=== PATIENT | male | born 1970 | race Caucasian/White ===

== ENCOUNTER 2023-08-18 09:32 | Emergency (ER) | payer OTHER, SELFPAY ==
[2023-08-18] VITALS (23 sets, daily range): BP systolic 150–237; BP diastolic 75–107; PULSE 52–63; RESP 14; TEMP 37.2; O2SAT 96–100; BMI 30.4
[2023-08-18] MEDS: ONDANSETRON 4 MG ODT SL (09:47)
--- NOTE | 2023-08-18 11:55 | ED_ITS ---
HPI - Nausea/Vomiting/Diarrhea General Chief complaint: Nausea/Vomiting/Diarrhea Stated complaint: Stomach Flu Time Seen by Provider: 08/18/23 11:54 Source: patient Mode of arrival: Ambulatory History of Present Illness HPI Narrative: 53-year-old male has had multiple episodes of nausea with nonbloody emesis last couple of days, also loose stools, last episode of nausea vomiting this morning, last loose stool just before triage. No fevers or chills. Had initial abdominal cramping that seems better now. He has not taken any medications on his own for these symptoms. Given oral Zofran at triage for control of nausea. Related Data Home Medications Medication Instructions Recorded Confirmed aspirin 81 mg tablet,delayed 81 mg PO QDAY ##0 01/11/16 release atorvastatin 20 mg tablet (Lipitor) 20 mg PO QDAY ##0 01/11/16 esomeprazole magnesium 20 mg 20 mg PO QDAY #0 caps 01/11/16 capsule,delayed release loratadine 10 mg tablet 10 mg PO QDAY #0 tabs 01/11/16 metoprolol tartrate 50 mg tablet 50 mg PO QDAY ##0 01/11/16 telmisartan 80 mg tablet 80 mg PO QDAY #0 tabs 01/11/16 Allergies Allergy/AdvReac Type Severity Reaction Status Date / Time No Known Drug Allergies Allergy Verified 08/18/23 09:41 Review of Systems Review of Systems Narrative: as per HPI Patient History Social History Smoking Status: Current every day smoker Smoking Status: Current every day smoker alcohol intake frequency: holidays/special occasions only Substance Use Type: marijuana Exam Narrative Exam Narrative: GENERAL: Well-developed patient, in mild distress. HEAD: Atraumatic. Normocephalic. EYES: Pupils equal round and reactive. Extraocular motions intact. No scleral icterus. No injection or drainage. ENT: Nose without bleeding, purulent drainage. Throat without erythema, tonsillar hypertrophy or exudate. Airway patent. NECK: Trachea midline. Non tender CARDIOVASCULAR: Regular rate and rhythm without murmurs, gallops, or rubs. RESPIRATORY: Clear to auscultation. Breath sounds equal bilaterally. No wheezes, rales, or rhonchi. GASTROINTESTINAL: Abdomen soft, non-tender, nondistended. EXTREMITIES: No edema or joint tenderness. BACK: Nontender without deformity or crepitance. No flank tenderness. NEURO: AOx3. SKIN: No rash or erythema of visible areas Initial Vital Signs Initial Vital Signs: Vital Signs Temperature 98.9 F 08/18/23 09:41 Pulse Rate 63 08/18/23 09:41 Respiratory Rate 14 08/18/23 09:41 Blood Pressure 199/88 H 08/18/23 09:41 Pulse Oximetry 98 08/18/23 09:41 Oxygen Delivery Method Room Air 08/18/23 09:41 Course Orders Ordered: Discontinued Medications Hydralazine HCl (Hydralazine 20 Mg/Ml Vial) 10 mg IV NOW ONE Stop: 08/18/23 15:56 Last Admin: 08/18/23 16:09 Dose: 10 mg Documented By: ANNELISE Ondansetron HCl (Ondansetron 4 Mg Odt) 4 mg SL NOW PRN PRN Reason: Nausea And Vomiting Last Admin: 08/18/23 09:47 Dose: 4 mg Documented By: ALEA Ondansetron HCl (Ondansetron 4 Mg/2 Ml Inj) 4 mg IV NOW PRN PRN Reason: Nausea And Vomiting Vital Signs Vital signs: Vital Signs - 8 hr 08/18/23 09:41 08/18/23 10:06 08/18/23 10:07 Temperature 98.9 F Pulse Rate 63 62 63 Respiratory Rate 14 Blood Pressure 199/88 H Pulse Oximetry 98 98 97 Oxygen Delivery Method Room Air 08/18/23 10:07 08/18/23 10:30 08/18/23 10:30 Temperature Pulse Rate 56 L Respiratory Rate Blood Pressure 181/82 H 160/80 H Pulse Oximetry 97 Oxygen Delivery Method 08/18/23 10:45 08/18/23 10:45 08/18/23 11:00 Temperature Pulse Rate 56 L 53 L Respiratory Rate Blood Pressure 167/75 H Pulse Oximetry 98 96 Oxygen Delivery Method 08/18/23 11:00 08/18/23 11:30 08/18/23 11:30 Temperature Pulse Rate 53 L Respiratory Rate Blood Pressure 161/82 H 182/86 H Pulse Oximetry 97 Oxygen Delivery Method 08/18/23 12:00 08/18/23 12:01 08/18/23 12:01 Temperature Pulse Rate 52 L 52 L Respiratory Rate Blood Pressure 169/77 H Pulse Oximetry 98 98 Oxygen Delivery Method 08/18/23 12:32 08/18/23 13:00 08/18/23 15:11 Temperature Pulse Rate 56 L 53 L Respiratory Rate Blood Pressure Pulse Oximetry 100 99 97 Oxygen Delivery Method 08/18/23 15:12 08/18/23 15:12 08/18/23 15:15 Temperature Pulse Rate 52 L Respiratory Rate Blood Pressure 203/84 H 203/84 H Pulse Oximetry 98 Oxygen Delivery Method 08/18/23 15:15 08/18/23 15:30 08/18/23 15:30 Temperature Pulse Rate 54 L 57 L Respiratory Rate Blood Pressure 223/97 H Pulse Oximetry 97 98 Oxygen Delivery Method 08/18/23 16:00 08/18/23 16:06 08/18/23 16:06 Temperature Pulse Rate 58 L 57 L Respiratory Rate Blood Pressure 237/107 H Pulse Oximetry 100 98 Oxygen Delivery Method 08/18/23 16:09 08/18/23 16:30 08/18/23 16:31 Temperature Pulse Rate 56 L 56 L Respiratory Rate Blood Pressure 237/107 H 204/90 H Pulse Oximetry 99 Oxygen Delivery Method 08/18/23 16:31 Temperature Pulse Rate 56 L Respiratory Rate Blood Pressure Pulse Oximetry 98 Oxygen Delivery Method MDM - Nausea/Vomiting/Diarrhea Lab Data Attestation: I reviewed the patient's lab results. 08/18/23 16:45 08/18/23 16:45 Labs: Lab Results 08/18/23 Range/Units 16:45 WBC 8.4 (4.5-11.0) X10^3/uL RBC 5.00 (4.5-5.9) X10^6/uL Hgb 15.5 (13.5-17.5) g/dL Hct 44.5 (41-53) % MCV 88.9 (80-100) fL MCH 31.1 (26-34) PG MCHC 35.0 (30-36) % RDW 13.1 (11.6-14.8) % Plt Count 192 (150-400) X10^3/uL Neut % (Auto) 67.4 (50-75) % Lymph % (Auto) 23.5 L (25-40) % [place] % (Auto) 8.1 (3-14) % Eos % (Auto) 0.4 L (2-4) % Baso % (Auto) 0.6 (0-2) % Neut # (Auto) 5700 (3566-2343) /uL Lymph # (Auto) 2000 (0795-1262) /uL [place] # (Auto) 700 (0-900) /uL Eos # (Auto) 0 (0-450) /uL Baso # (Auto) 100 (0-100) /uL Sodium 140 (137-145) mmol/L Potassium 3.8 (3.4-5.1) mmol/L Chloride 110 H (98-107) mmol/L Carbon Dioxide 21 L (22-32) mmol/L BUN 12 (9-20) mg/dL Creatinine 0.73 (0.66-1.25) mg/dL Estimated GFR > 60 (>60) mL/min BUN/Creatinine Ratio 16.4 (6-22) Glucose 116 H (70-100) mg/dL Calcium 9.1 (8.4-10.2) mg/dL Total Bilirubin 1.0 (0.2-1.3) mg/dL AST 37 (17-59) IU/L ALT 42 (<50) IU/L Alkaline Phosphatase 72 (38-126) U/L Troponin I < 0.012 (0.01-0.034) ng/mL Total Protein 7.6 (6.3-8.2) g/dL Albumin 4.7 (3.5-5.0) g/dL Globulin 2.9 (1.7-4.1) g/dL Albumin/Globulin Ratio 1.6 (1.0-2.8) Urine Dip Bedside Urine Glucose Negative Bedside Urine Bilirubin - Negative Bedside Urine Ketone - Negative Urine Specific [place] 1.005 Bedside Urine Occult Blood - Negative Bedside Urine pH 6.0 Bedside Urine Protein - Negative Bedside Urine Urobilinogen - Negative Bedside Urine Nitrite - Negative Bedside Urine Leukocytes - Negative Esterase ECG Data Attestation: I personally reviewed and interpreted this ECG as follows: Interpretation: Sinus bradycardia with a rate of 54. No obvious ST segment elevation or depression changes. TN 184. QRS 92. QTC 441. MDM Narrative Medical decision making narrative: 53-year-old male with nausea vomiting diarrhea for the last couple of days, last loose stool prior to triage, now he feels better, no longer having abdominal cramping. Given Zofran at triage, no longer having nausea. Afebrile, sirs screen negative. Abdominal exam is soft. Can consider loperamide, offered, he declined however. Consider ODT Zofran prescription for discharge. We held laboratory studies, he feels comfortable with that, seems like his symptoms have largely resolved. Blood pressure 230/97 noted when preparing for discharge, he took his telmisartan this morning. He denies chest pain, shortness of breath, headache, weakness, diaphoresis. We will send labs, check EKG, chest x-ray, troponin. Study results unremarkable. IV hydralazine given. BP improved, further titration of blood pressure via PCP as outpatient, continue present regimen for now. Discharge Plan Departure Patient Disposition: Home Clinical Impression: Nausea vomiting and diarrhea, Hypertension Instructions: Diarrhea, DI for Nausea -- Adult, DI for Vomiting -- Adult Activity Restrictions/Additional Instructions: You had recent nausea vomiting diarrhea, last episode of loose stool was shortly before triage, no stool specimen sent for lab testing. Nausea resolved with oral ondansetron dose given shortly after triage. Blood pressure was elevated, EKG blood testing unremarkable, IV hydralazine dose given. On review of your medications you seemed to be taking maximal doses of Mic[place] and metoprolol and amlodipine, and you mentioned that your regular doctor might be switching or adding or changing your blood pressure medicine regimen. Follow up further with your regular provider for blood pressure management changes. Regarding your acute symptoms of nausea that were resolved, further ondansetron sent to your pharmacy to use if needed for control of nausea symptoms. Regarding diarrhea symptoms, your symptoms resolved, you could consider loperamide [id number] but you might end up having constipation, you were here for a number of hours without any loose stool subsequent to send to the lab for testing. Drink plenty of fluids. Contact your regular provider Monday to address further blood pressure concerns. Continue your current blood pressure regimen for now. Return to this/nearest emergency department for any change worsening symptoms or any concerns prior Prescriptions: No Action atorvastatin [Lipitor] 20 MG tablet 20 mg PO QDAY Qty: 0 loratadine 10 MG tablet 10 mg PO QDAY Qty: 0 aspirin 81 MG tablet,delayed release (DR/EC) 81 mg PO QDAY Qty: 0 telmisartan 80 MG tablet 80 mg PO QDAY Qty: 0 metoprolol tartrate 50 MG tablet 50 mg PO QDAY Qty: 0 esomeprazole magnesium 20 MG capsule,delayed release(DR/EC) 20 mg PO QDAY Qty: 0 Referrals: Provider,Harriett DOAN [Primary Care Provider] - Stand Alone Forms: Patient Portal/API
--- NOTE | 2023-08-18 15:56 | DI.RAD.S_ITS ---
PROCEDURE: XR CHEST 1V INDICATIONS: elevated BP TECHNIQUE: One view of the chest was acquired. COMPARISON: None. FINDINGS: Surgical changes and devices: None. Lungs and pleura: Lungs are clear. No pleural effusions or pneumothorax. Mediastinum: Mediastinal contours appear normal. Heart size is at the borderline limits of normal. Bones and chest wall: No suspicious bony lesions. Overlying soft tissues appear unremarkable. IMPRESSION: No acute cardiopulmonary abnormality is seen. Dictated by: Elliot Carvajal M.D. on 08/18/2023 at 16:38 Approved by: Elliot Carvajal M.D. on 08/18/2023 at 16:39
[2023-08-18] MEDS: HYDRALAZINE 20 MG/ML VIAL 10 MG IV (16:09)
[2023-08-18 16:58] LABS: Add Manual Diff / Slide Review NO; Basophils Absolute Auto 100 /uL (0-100); Basophils Percent Auto 0.6 % (0-2); Eosinophils Absolute Auto 0 /uL (0-450); Eosinophils Percent Auto 0.4 % (2-4); Hematocrit 44.5 % (41-53); Hemoglobin 15.5 g/dL (13.5-17.5); Lymphocytes Absolute Auto 2000 /uL (1100-4500); Lymphocytes Percent Auto 23.5 % (25-40); Mean Corpuscular Hemoglobin 31.1 PG (26-34); Mean Corpuscular Volume 88.9 fL (80-100); Monocytes Absolute Auto 700 /uL (0-900); Monocytes Percent Auto 8.1 % (3-14); Neutrophils Absolute Auto 5700 /uL (1500-7000); Neutrophils Percent Auto 67.4 % (50-75); Platelet Count 192 X10^3/uL (150-400); Red Cell Distribution Width 13.1 % (11.6-14.8); White Blood Cell Count 8.4 X10^3/uL (4.5-11.0)
[2023-08-18 17:08] LABS: Alanine Aminotransferase 42 IU/L (<50); Albumin 4.7 g/dL (3.5-5.0); Albumin Globulin Ratio 1.6 (1.0-2.8); Alkaline Phosphatase 72 U/L (38-126); Aspartate Aminotransferase 37 IU/L (17-59); BUN Creatinine Ratio 16.4 (6-22); Blood Urea Nitrogen 12 mg/dL (9-20); Calcium 9.1 mg/dL (8.4-10.2); Carbon Dioxide 21 mmol/L (22-32); Chloride 110 mmol/L (98-107); Estimated Glomerular Filt Rate > 60 mL/min (>60); Globulin 2.9 g/dL (1.7-4.1); Glucose 116 mg/dL (70-100); HEMOLYSIS < 15 (0-50); Potassium 3.8 mmol/L (3.4-5.1); Sodium 140 mmol/L (137-145); Total Protein 7.6 g/dL (6.3-8.2)
[2023-08-18 17:19] LABS: Troponin I < 0.012 ng/mL (0.01-0.034)
== END 2023-08-18 17:15 | disposition home or self-care (01) ==
PROVIDERS: Emergency Provider Emergency Medicine
DX: R11.2 Nausea with vomiting, unspecified (principal); R19.7 Diarrhea, unspecified; I10 Essential (primary) hypertension; F17.200 Nicotine dependence, unspecified, uncomplicated
CPT/HCPCS: 36415; 71045; 80053; 81003; 84484; 85025; 93005; 93010; 96374; 99284; J0360